=== PATIENT | female | born 1960 | race Two or more races ===

== ENCOUNTER 2020-10-03 15:44 | Outpatient (REF) | payer OTHER, SELFPAY ==
--- NOTE | ~2020-10-03 | US_ITS ---
EXAMINATION: US RETROPERITONEAL COMPLETE (RENAL) CLINICAL INFORMATION: Unspecified abdominal pain. Horseshoe kidney. COMPARISON: Renal ultrasound 11/27/2019. Ultrasound abdomen complete 03/01/2019. TECHNIQUE: Real-time imaging of the kidneys and bladder. FINDINGS: There is a horseshoe kidney. RIGHT MOIETY: 9.2 x 3.8 x 4.0 cm (SAG x AP x TRV). The kidney is normal in size, contour, and echogenicity. Renal cortical thickness is normal. No focal parenchymal lesions or hydronephrosis. A nonobstructing calculus in the mid polar region measures 0.2 cm. LEFT MOIETY: 11.5 x 4.1 x 4.8 cm (SAG x AP x TRV). The kidney is normal in size, contour, and echogenicity. Renal cortical thickness is normal. No calculi or focal parenchymal lesions. There is mild hydronephrosis new from priors. BLADDER: Well distended and normal. Bilateral ureteral jets are demonstrated. Prevoid bladder volume is 250 mL. Postvoid bladder volume is 5 mL. US/US retroperitoneal comp IMPRESSION: 1. Horseshoe kidney. Mild hydronephrosis of the left moiety new from prior studies. 2. Small nonobstructing calculus mid polar region of the right moiety..
== END 2020-10-03 15:45 | disposition home or self-care (01) ==
LOC: HO.US 15:44
PROVIDERS: Visit Provider Physician Assistant
DX: R10.2 Pelvic and perineal pain (principal); N39.0 Urinary tract infection, site not specified
CPT/HCPCS: 76770

== ENCOUNTER 2020-10-15 10:28 | Outpatient (REF) | payer OTHER, SELFPAY ==
--- NOTE | ~2020-10-15 | US_ITS ---
EXAMINATION: US ABDOMEN COMPLETE CLINICAL INFORMATION: Epigastric pain. COMPARISON: Ultrasound kidneys and bladder 10/03/2020. Renal ultrasound 11/27/2019. Abdominal ultrasound February 2019 TECHNIQUE: Real-time imaging of the abdominal viscera. FINDINGS: PANCREAS: Normal. ABDOMINAL AORTA: There is evidence of atherosclerotic disease with vessel wall calcification. The upper abdominal aorta is normal in caliber. The mid and distal abdominal aorta is not well visualized due to bowel gas. INFERIOR VENA CAVA: Visualized portions are normal. LIVER: Normal. The liver is normal in size. The liver contour is normal. Parenchymal echogenicity is normal. No focal hepatic lesion. There is no intrahepatic biliary duct dilatation seen. GALLBLADDER: Normal. The gallbladder is physiologically distended without evidence of stones, sludge, polyps, wall thickening or pericholecystic fluid. COMMON BILE DUCT: Not well visualized. Kidneys: There is a horseshoe kidney. Right renal moiety measures 9 and left renal moiety measures 12 cm in length There is a small echogenic density with twinkle artifact in the lower pole of the right moiety questionable for a stone. There is mild pelvic fullness, left greater than right. No definite hydronephrosis is seen. No renal mass. SPLEEN: Normal. The spleen measures 7.4 cm in maximum dimension. FREE FLUID: None. US/US abdomen complete IMPRESSION: Horseshoe kidney. Question small right renal stone. Limited visualization of the mid and distal abdominal aorta and common bile duct. Otherwise unremarkable exam.
== END 2020-10-15 10:29 | disposition home or self-care (01) ==
LOC: HO.US 10:28
PROVIDERS: Visit Provider Physician Assistant
DX: R10.13 Epigastric pain (principal)
CPT/HCPCS: 76700

== ENCOUNTER → 2020-11-04 11:04 | Outpatient (BNVA) | payer OTHER, SELFPAY | PROVIDERS: PCP Physician Assistant; Visit Provider Urology | DX: N39.0 Urinary tract infection, site not specified (principal) | CPT/HCPCS: 99202 ==

== ENCOUNTER 2023-01-17 15:22 | Outpatient (REF) | payer OTHER, SELFPAY | END 2023-01-17 15:23 | disposition home or self-care (01) | LOC: HO.LAB 15:22 | PROVIDERS: Absent Provider Physician Assistant; PCP Internal Medicine; Visit Provider Internal Medicine | DX: I10 Essential (primary) hypertension (principal) | CPT/HCPCS: 36415; 80053; 80061; 82043; 83880; 84443; 84484; 85027 ==

== ENCOUNTER 2023-01-17 16:09 | Emergency (ER) | payer OTHER, SELFPAY ==
--- NOTE | 2023-01-17 16:11 | ECG_ITS ---
Test Reason : CHEST PAIN
[2023-01-17 16:33] VITALS: BP 167/79; PULSE 94; RESP 18; TEMP 36.8; O2SAT 99; BMI 26.4
--- NOTE | 2023-01-17 16:39 | ED.GENADULT ---
HPI - General Adult General Chief complaint: Chest Pain Stated complaint: chest pain Time Seen by Provider: 01/17/23 21:28 Source: patient Mode of arrival: ambulatory Limitations: no limitations History of Present Illness HPI narrative: Patient 62 years old female with history of fibromyalgia hypertension GERD comes here for 2 weeks of sharp left-sided chest pain going to the left arm increases on palpation and taking deep breath no cough no fever no chills patient said last time patient had pneumonia with similar pain. Related Data Home Medications Medication Instructions Recorded Confirmed diazepam 5 mg tablet 5 mg PO BID PRN 05/12/20 10/13/22 Previous Rx's Medication Instructions Recorded clonidine HCl 0.1 mg tablet 0.1 mg PO Q8H PRN for anxiety #90 07/06/20 tabs estradiol 0.01% (0.1 mg/gram) See Rx Instructions .Route 3XW 30 03/26/21 vaginal cream days #42.5 grams duloxetine 30 mg capsule,delayed 30 mg PO DAILY 30 days #30 caps 08/01/21 release NEBULIZER and all related supplies #1 ea 07/09/22 acetaminophen 325 mg tablet 650 mg PO Q6H PRN pain #30 tabs 09/03/22 (Tylenol) famotidine 20 mg tablet 20 mg PO DAILY 30 days #30 tabs 09/13/22 hydrochlorothiazide 12.5 mg capsule 12.5 mg PO QAM #30 caps 09/13/22 sucralfate 1 gram tablet (Carafate) 1 g PO BID 30 days #60 tabs 09/13/22 albuterol sulfate 2.5 mg/3 mL 2.5 mg (3 mL) inhalation QID PRN 09/25/22 (0.083 %) solution for nebulization for wheezing #300 mL acetaminophen 300 mg-codeine 30 mg 1 tab PO Q8H PRN pain 4 days #12 10/13/22 tablet tabs loratadine 10 mg tablet 10 mg PO DAILY 90 days #90 tabs 10/13/22 amlodipine 10 mg tablet 10 mg PO DAILY #30 tabs 11/16/22 hydroxyzine HCl 25 mg tablet 25 mg PO Q8H PRN for anxiety #90 11/16/22 tabs omeprazole 40 mg capsule,delayed 40 mg PO DAILY #30 caps 11/16/22 release fluticasone propionate 50 1 spray intranasal DAILY #16 mL 11/21/22 mcg/actuation nasal spray,suspension albuterol sulfate 90 mcg/actuation 1 puff inhalation QID #18 ea 12/18/22 aerosol inhaler (Ventolin HFA) trimethoprim 100 mg tablet 100 mg PO DAILY 90 days #90 tabs 12/27/22 gabapentin 600 mg tablet 600 mg PO BID 30 days #60 tabs 01/11/23 ibuprofen 600 mg tablet 600 mg PO Q6H PRN fever or pain 01/17/23 #30 tabs Allergies Allergy/AdvReac Type Severity Reaction Status Date / Time penicillin V Allergy Unknown hives Verified 10/13/22 14:06 Review of Systems Review of Systems: Yes all other systems are reviewed and are negative [facility] Past Medical History Medical History Chest congestion Surgical History History of total abdominal hysterectomy Family History Family History Father No problems noted. Mother No problems noted. Family/Other Diabetes Hypertension Son No problems noted. Social History Social History Housing: Apartment Alcohol intake: never Patient Tobacco Use Status: Current everyday Tobacco user Cigarettes Per Day: 4 Smoked in Last 30 Days: Yes Use of substances other than those prescribed or required for medical reasons: No Advance Directives: No Advance Directives Information Provided: Yes service: No Current occupational status: disabled Cognitive needs: No Hearing needs: No Vision needs: No Physical Exam ED Vital Signs: Vital Signs - 24 hr 01/17/23 16:33 01/17/23 22:08 Temperature 98.3 F 98.1 F Pulse Rate 94 84 Respiratory Rate 18 15 Blood Pressure 167/79 H 158/68 H Pulse Oximetry 99 97 Oxygen Delivery Method Room Air Room Air BMI result Body Mass Index 26.4 Appearance: Alert. Oriented X3. No acute distress. Sleeping without any distress Eyes: PERRLA, No Nystagmus ENT: Pharynx normal. Oral Mucosa moist Neck: Normal inspection. Neck supple. CVS: Normal heart rate and rhythm. Pulses normal. Respiratory: No respiratory distress. Equal air entry bilateral, no wheezing/rales/rhonchi left chest wall tenderness at L 2nd intercostal space Abdomen: Soft and nontender. Bowel sounds are present, no mass palpable, no CVA tenderness Skin: Skin warm and dry. Normal skin color. Normal skin turgor. Extremities: No lower extremity edema. No calf tenderness Neuro: Oriented X 3. No motor deficit. No sensory deficit.No cerebellar signs , cranial nerves II-XII intact Course Course Course Narrative: RmE: 62 yold female presetns to the ED for left sided chest pain radiating to left arm. Patient states no SOB. EkG and labs ordered Medications Administered Discontinued Medications Generic Name Dose Route Start Last Admin Trade Name Freq PRN Reason Stop Dose Admin Ibuprofen 600 mg 01/17/23 22:24 01/17/23 22:45 Ibuprofen 600 Mg Tablet PO 01/17/23 22:25 600 mg ONCE ONE Administration Medical Decision Making Medical Decision Making [facility] Narrative: Patient with costal cartilage and tenderness labs stable chest x-ray negative discharge patient home on ibuprofen Differential Diagnosis Costochondritis/ACS/pneumonia Lab Data [facility] Lab Attestation statement: I reviewed the patient's lab results. Independent Interpretation I performed an independent interpretation of an: EKG Interpretation: Normal sinus rhythm heart rate 80 beats per minute normal intervals normal axis no acute consolidation no acute ischemia Discharge Plan Discharge Clinical Impression: Costalchondritis Patient Disposition: Home, Self-Care Instructions: Costochondritis (ED) Additional Instructions: Ibuprofen for pain Your chest pain is from inflammation of the cartilage Follow-up with PCP Prescriptions: New ibuprofen 600 mg tablet 600 mg PO Q6H PRN (Reason: fever or pain) Qty: 30 0RF No Action clonidine HCl 0.1 mg tablet 0.1 mg PO Q8H PRN (Reason: for anxiety) Qty: 90 3RF estradiol 0.01 % (0.1 mg/gram) cream See Rx Instructions .Route 3XW 30 Days Qty: 42.5 5RF Rx Instructions: pea-sized to urethra 3 times a week; duloxetine 30 mg capsule,delayed release(DR/EC) 30 mg PO DAILY 30 Days Qty: 30 3RF (DME) NEBULIZER and all related supplies See Rx Instructions .Route .MEDSUPPLY Qty: 1 0RF Rx Instructions: As directed acetaminophen [Tylenol] 325 mg tablet 650 mg PO Q6H PRN (Reason: pain) Qty: 30 0RF hydrochlorothiazide 12.5 mg capsule 12.5 mg PO QAM Qty: 30 4RF famotidine 20 mg tablet 20 mg PO DAILY 30 Days Qty: 30 3RF sucralfate [Carafate] 1 gram tablet 1 g PO BID 30 Days Qty: 60 3RF albuterol sulfate 2.5 mg /3 mL (0.083 %) solution for nebulization 2.5 mg inhalation QID PRN (Reason: for wheezing) Qty: 300 0RF omeprazole 40 mg capsule,delayed release(DR/EC) 40 mg PO DAILY Qty: 30 4RF amlodipine 10 mg tablet 10 mg PO DAILY Qty: 30 4RF hydroxyzine HCl 25 mg tablet 25 mg PO Q8H PRN (Reason: for anxiety) Qty: 90 1RF fluticasone propionate 50 mcg/actuation spray,suspension 1 spray intranasal DAILY Qty: 16 1RF albuterol sulfate [Ventolin HFA] 90 mcg/actuation HFA aerosol inhaler 1 puff inhalation QID Qty: 18 3RF trimethoprim 100 mg tablet 100 mg PO DAILY 90 Days Qty: 90 1RF gabapentin 600 mg tablet 600 mg PO BID 30 Days Qty: 60 5RF diazepam 5 mg tablet 5 mg PO BID PRN loratadine 10 mg tablet 10 mg PO DAILY 90 Days Qty: 90 1RF acetaminophen-codeine 300-30 mg tablet 1 tab PO Q8H PRN (Reason: pain) 4 Days Qty: 12 0RF Discharge Date/Time: 01/17/23 23:07
[2023-01-17 22:00] VITALS: PULSE 88
[2023-01-17 22:08] VITALS: BP 158/68; PULSE 84; RESP 15; TEMP 36.7; O2SAT 97
--- NOTE | 2023-01-17 23:10 | PC.NURSE ---
continuous athletic monitor placed
--- NOTE | 2023-01-17 23:23 | PC.NURSE ---
Discharge instructions given and explained to pt No apparent distress No respiratory distress Able to speak in full sentences Ambulates safely/independently All of pt's questions answered AOx4
== END 2023-01-17 23:07 | disposition home or self-care (01) ==
PROVIDERS: Emergency Provider Internal Medicine; PCP Physician Assistant
DX: M94.0 Chondrocostal junction syndrome [Tietze] (principal); I10 Essential (primary) hypertension; Z79.899 Other long term (current) drug therapy
CPT/HCPCS: 71045; 93005; 99283; 99285

== ENCOUNTER → 2024-01-04 12:57 | Outpatient (REF) | payer OTHER, SELFPAY ==
--- NOTE | 2024-01-04 13:01 | ECG_ITS ---
Test Reason : CP Blood Pressure : / mmHG Vent. Rate : 094 BPM Atrial Rate : 094 BPM P-R Int : 212 ms QRS Dur : 070 ms QT Int : 370 ms P-R-T Axes : 078 009 065 degrees QTc Int : 462 ms Sinus rhythm with 1st degree A-V block Otherwise normal ECG When compared with ECG of 17-JAN-2023 16:19, No significant change was found Referred By: Nhan Golden Electronically Signed By:Demario Santos
== END ==
LOC: HO.CARD 12:57
PROVIDERS: PCP Physician Assistant; Visit Provider Physician Assistant
DX: R07.9 Chest pain, unspecified (principal)
CPT/HCPCS: 93005

== ENCOUNTER → 2024-01-04 13:01 | Outpatient (BNV) | payer OTHER, SELFPAY | PROVIDERS: PCP Physician Assistant; Visit Provider Internal Medicine Cardiovascular Disease | DX: R07.9 Chest pain, unspecified (principal) | CPT/HCPCS: 93010 ==

== ENCOUNTER 2024-02-15 08:20 | Outpatient (AMB) | payer OTHER, SELFPAY ==
--- NOTE | 2024-02-15 08:54 | A.OFFPC_ITS ---
Vital Signs 02/15/24 08:56 Height 5 ft 1 in Weight 108 lb BMI 20.4 BP 132/60 Blood Pressure Location Lt brachial Position Sitting Pulse 78 Pulse Source Pulse Oximeter Pulse Oximetry (%) 99 Oxygen Delivery Method Room Air Intake Visit Reasons: discuss getting a wheelchair Intake Note: Patient is here to follow up on discuss of getting wheelchair/scooter due to difficulty walk and Polyarthralgia. [employer] Sales Required: No Shampoo Assistant: Present Accompanied by: SHELL WORKER Allergies penicillin V Allergy (Unknown, Verified 02/15/24 09:11) hives Medication List - Last Reconciled 02/15/24 by Nhan Golden PA-C acetaminophen (Tylenol) 650 mg (2 x 325 mg) PO Q6H PRN acetaminophen-codeine 300-30 mg 1 tab PO Q8H PRN 4 days albuterol sulfate 90 mcg/actuation (Ventolin HFA) 1 puff inhalation QID albuterol sulfate 2.5 mg (3 mL) inhalation QID PRN amlodipine 10 mg PO DAILY 90 days clonidine HCl 0.1 mg PO Q8H PRN duloxetine 30 mg PO DAILY 30 days estradiol 0.01%(0.1mg/gram) pea-sized to urethra 3 times a week; 30 days famotidine 20 mg PO DAILY 30 days ferrous sulfate 325 mg PO DAILY 90 days fluticasone propionate 50 mcg/actuation 1 spray intranasal DAILY gabapentin 600 mg PO BID 30 days hydrochlorothiazide 12.5 mg PO QAM hydroxyzine HCl 25 mg PO Q8H PRN ibuprofen 600 mg PO Q6H PRN loratadine 10 mg PO DAILY 90 days [NEBULIZER and all related supplies As directed] omeprazole 40 mg PO DAILY sucralfate (Carafate) 1 g PO BID 30 days trimethoprim 100 mg PO DAILY 90 days Tobacco use date assessed: 02/15/24 Dental Screening Dental Screen Date: 02/15/24 Did you have a dental visit in the last 12 months?: No Did you have a dental problem in the last 6 months where you did not have access to dental care?: No Was dental information given to patient?: Patient has dentist HPI discuss getting a wheelchair HPI Details Patient is a 64-year-old female being here today for a follow-up visit. Has not been seen in quite some time here at the primary care office. .? Patient has a past medical history significant for fibromyalgia, chronic UTIs, multiple personalities, major depressive disorder, hypertension. Concerns--> Has lost a significant amount of weight since last visit. Now at 108lbs from 135Lbs. She does report changes in her diet reports she has been falling lately, and is requesting script for a walker and a wheelchair. She would like to get a electric scooter though no she needs to be evaluated [facility] physical therapy She does report she is not able to afford her electricity bill though still needs her electric nebulizer and needs medical necessity letter to her electrical department to keep her power on. CHRONIC MEDICAL CONDITIONS--> Major depressive disorder/multiple personalities:? Patient was followed by psychiatrist whom prescribes? her mental health medications.? Unfortunately lost her follow-up with her psychiatrist and would like to be re-established with a mental health therapist and a new psychiatrist. Will be getting set up with senior services in [facility] on a daily basis with multiple personalities. She continues to have personal issues at home. .. Asthma: She reports her asthma has been fairly well controlled though has been having some shortness of breath and cough as of late. Physical exam does note some wheeze today in office. Unfortunately continues to smoke a few cigarettes per day and does understand she needs to quit. She does report having some sharp chest pains at times and is willing to get a chest x-ray. .. Hypertension:? Patient reports when she takes her blood pressure at home she gets normal readings 120s to 130 systolic.? She continues on amlodipine 10 mg and hydrochlorothiazide 12.5.? Denies any chest discomfort, headaches, shortness of breath on exertion. ?.. ?.. ?Fibromyalgia: Patient reports her pain is worsening with? cold and moist weather, does get good relief with Tylenol No. 3. She reports the pain in her legs has been getting worse particular in her knees and ankles. She relates this to her fibromyalgia which has caused her not to be able to ambulate well often needing assistance with walking long distances. --> I agree she would benefit from a Rol lator walker in a transport wheelchair in order to get to appointments and get her blood work done and enjoy her life [facility] Medical History (Updated 07/31/24 @ 15:30 by Nhan Golden PA-C) Foot callus Polyarthralgia Pain of left heel Chest congestion Surgical History History of foot surgery History of total abdominal hysterectomy Family History Father No problems noted. Mother No problems noted. Family/Other Diabetes Hypertension Son No problems noted. Social History Housing: Apartment Alcohol intake: never Patient Tobacco Use Status: Current everyday Tobacco user Tobacco use type: Cigarette Cigarettes Per Day: 4 e-Cigarette/Vaping Use: Never Used Second Hand Smoke Exposure: Yes service: No Current occupational status: disabled Cognitive needs: Yes (Cane) Hearing needs: Yes (hearing) Vision needs: Yes (Glasses) Questionnaire PHQ-9 Over the last 2 weeks, how often have you been bothered by any of the following problems? 1. Little interest or pleasure in doing things: more than half the days 2. Feeling down, depressed, or hopeless: nearly every day 3. Trouble falling or staying asleep, or sleeping too much: several days 4. Feeling tired or having little energy: more than half the days 5. Poor appetite or overeating: more than half the days 6. Feeling bad about yourself - or that you are a failure or have let yourself or your family down: nearly every day 7. Trouble concentrating on things, such as reading the newspaper or watching television: several days 8. Moving or speaking so slowly that other people could have noticed. Or the opposite - being so fidgety or restless that you have been moving around a lot more than usual: not at all 9. Thoughts that you would be better off or of hurting yourself in some way: not at all Total score: 14 Depression Screening Interpretation: Positive Depression Screening Follow-up: Existing condition and In treatment Depression Screening Done: Yes 88594 - PHQ-9 Billing: Yes Source: Developed by Drs. Carlos Paris, Kelly Steele, Jerry Edward and colleagues, with an educational danitza from [employer]. Thrive Questionnaire Date Thrive assessed: 02/15/24 I am a: Patient What is your living situation today?: I have a steady place to live Within the past 12 months, did the food you bought not last and you didn't have the money to get more?: Never true Within the past 12 months, did you worry whether your food would run out before you got money to buy more?: Never true Do you have trouble paying for medicines?: No Do you have trouble getting transportation to medical appointments?: No Do you have trouble paying your heating and electricity bill?: No Do you have trouble taking care of your child, family member or friend?: No Do you have trouble with day-to-day activities such as bathing, preparing meals, shopping, managing finances, etc.?: No Are you currently unemployed and looking for a job?: No Are you interested in more education?: No Currently or been in a relationship where the following occur: No concerns reported THRIVE Score: 0 AUDIT C Alcohol Use Questionnaire (AUDIT-C) 1. How often do you have a drink containing alcohol?: Never Total Score: 0 MARU-7 AMB Questionnaire MARU-7 Date MARU - 7 assessed: 02/15/24 Feeling nervous, anxious, or on edge: 3 = Nearly every day Not being able to stop or control worryin = Nearly every day Worrying too much about different things: 3 = Nearly every day Trouble relaxin = More than half the days Being so restless that it is hard to sit still: 0 = Not at all Becoming easily annoyed or irritable: 2 = More than half the days Feeling afraid as if something awful might happen: 3 = Nearly every day Total MARU-7 score (0-4 normal; 5-9 mild; 10-14 moderate; 15-21 severe): 16 Source: Developed by Drs. Carlos Paris, Kelly Steele, Jerry Edward and colleagues, with an educational danitza from [employer]. MARU-7 Assessment Billing MARU-7 Assessment Tool: MARU-7 Assessment 53168 Physical exam (Primary Care) Vital Signs: Last Vital Signs Pulse 78 02/15/24 08:56 BP 132/60 02/15/24 08:56 Pulse Ox 99 02/15/24 08:56 Oxygen Delivery Method Room Air 02/15/24 08:56 BMI result Body Mass Index 20.4 Tobacco/Smoking Status: Tobacco use Status Tobacco use date assessed 02/15/24 02/15/24 09:03 Patient Tobacco Use Status Current everyday Tobacco 02/15/24 09:03 Tobacco use type Cigarette 02/15/24 09:05 e-Cigarette/Vaping Use Never Used 02/15/24 09:03 PHQ-9: PHQ-9 Score PHQ-9: Total score 14 02/15/24 13:57 Depression Screening Interpretation: Positive Depression Screening Follow-up: Existing condition and In treatment Thrive Assessment: Date of Thrive Assessment Date Thrive assessed 02/15/24 02/15/24 09:03 Currently or been in a relationship where the following occur: No concerns reported Assessment and Plan Assessment & Plan (1) HTN (hypertension): Code(s): I10 - Essential (primary) hypertension Qualifiers: Hypertension type: essential hypertension Qualified Code(s): I10 - Essential (primary) hypertension Plan: Patient reports blood pressure has been stable on current dose of amlodipine. Denies any chest discomfort, headaches or dizziness. Goal blood pressure be below 140/90 (2) Borderline high cholesterol: Code(s): E78.9 - Disorder of lipoprotein metabolism, unspecified Plan: Most recent lipid panel showing borderline high cholesterol. Will continue to follow flu diet restrictions. Will follow her lipid panel closely with goal LDL to be below 130 (3) Asthma: Code(s): J45.909 - Unspecified asthma, uncomplicated Qualifiers: Asthma complication type: uncomplicated Asthma persistence: intermittent Asthma severity: mild Qualified Code(s): J45.20 - Mild intermittent asthma, uncomplicated Plan: Unfortunately continues to smoke. Does have an albuterol inhaler and nebulizer available to her. She does report some chest tightness at times and is willing to get a chest x-ray. Again advised to quit smoking (4) MDD (major depressive disorder), recurrent episode, moderate: Code(s): F33.1 - Major depressive disorder, recurrent, moderate Plan: Patient does suffer from multiple mental health conditions including depression and anxiety. PHQ-9 score positive for moderate depression which has been existing condition for her. She has lost her follow-up with her mental health providers and would like to reestablish with a mental health therapist and a psychiatrist to manage her mental health medications. (5) Fibromyalgia: Code(s): M79.7 - Fibromyalgia Plan: She continues to have intermittent pain flares all over her body. Does report recently falling a few times at her [facility] apartment. She does use Tylenol with codeine on a p.r.n. basis for pain. She continues with duloxetine 30 mg We did discuss the habit-forming nature of this medication and patient promises to only use for pain scales of 8-10 and for her regular chronic pain to continue Tylenol 650. (6) Anemia: Code(s): D64.9 - Anemia, unspecified Qualifiers: Anemia type: iron deficiency Iron deficiency anemia type: other iron deficiency Qualified Code(s): D50.8 - Other iron deficiency anemias Plan: Has had history of anemia. Has noticed significant weight loss since last office visit . Will recheck iron studies. (7) Tobacco dependence: Code(s): F17.200 - Nicotine dependence, unspecified, uncomplicated Plan: Patient does understand she needs to quit smoking though at this time is not willing to try nicotine replacement. (8) Breast cancer screening: Code(s): Z12.39 - Encounter for other screening for malignant neoplasm of breast Qualifiers: Breast cancer screening modality: mammogram Qualified Code(s): Z12.31 - Encounter for screening mammogram for malignant neoplasm of breast Plan: Willing to do mammogram (9) Colon cancer screening: Code(s): Z12.11 - Encounter for screening for malignant neoplasm of colon Plan: She is willing to do colonoscopy (10) Leg weakness, bilateral: Code(s): R29.898 - Other symptoms and signs involving the musculoskeletal system Plan: As above, likely related to her fibromyalgia and an element of osteoarthritis. Likely benefit from Rollator walker in a transfer wheelchair to help her with her mobility. (11) Balance disorder: Code(s): R26.89 - Other abnormalities of gait and mobility Plan: Will likely benefit from Rollator walker and a transfer wheelchair to reduce falls (12) Constipation: Code(s): K59.00 - Constipation, unspecified Qualifiers: Constipation type: slow transit constipation Qualified Code(s): K59.01 - Slow transit constipation Plan: She does report having pretty significant constipation that she relates also to causing her recurrent UTIs. She has tried [id number]-[id number] stool softeners and laxatives though have not been helpful. (13) Recurrent UTI (urinary tract infection): Code(s): N39.0 - Urinary tract infection, site not specified Plan: Has followed up with Urology in started on daily use of trimethoprim which has been helpful reducing UTI recurrences. She reports her recurrent UTI has are related to her constipation. 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 She is currently on waiting list to establish care with another mental health therapist and a psychiatrist. Orders: Orders Microalbumin, Random (w Creat) Today I10 - Essential (primary) hypertension [facility]. Panel Fast Today I10 - Essential (primary) hypertension Lipid Panel Today E78.9 - Disorder of lipoprotein metabolism, unspecified Vitamin B12 and Folate Today D50.8 - Other iron deficiency anemias, E53.8 - Deficiency of other specified B group vitamins XR chest 2V Today J45.20 - Mild intermittent asthma, uncomplicated Complete Blood Count no Diff Today K21.9 - Gastro-esophageal reflux disease without esophagitis IRON PROFILE Today D50.8 - Other iron deficiency anemias, D50.9 - Iron deficiency anemia, unspecified PT Evaluation and Treatment Today R29.898 - Other symptoms and signs involving the musculoskeletal system MM screening mammo BI Today Z12.31 - Encounter for screening mammogram for malignant neoplasm of breast Referrals Gastroenterology Referral Z12.11 - Encounter for screening for malignant neoplasm of colon Thoracic/General Surgery Referral F17.200 - Nicotine dependence, unspecified, uncomplicated Medications: New chair, wheel (Wheel chair) As directed 1 ea 0RF R26.89 - Other abnormalities of gait and mobility, R29.898 - Other symptoms and signs involving the musculoskeletal system walker (Ultra-Light Rollator misc) As directed 1 ea 0RF M54.50 - Low back pain, unspecified, M79.7 - Fibromyalgia, R26.89 - Other abnormalities of gait and mobility, R29.898 - Other symptoms and signs involving the musculoskeletal system Refilled sucralfate (Carafate) 1 g PO BID 60 tabs 3RF 30 days K21.9 - Gastro-esophageal reflux disease without esophagitis loratadine 10 mg PO DAILY 90 tabs 1RF 90 days J30.1 - Allergic rhinitis due to pollen ibuprofen 600 mg PO Q6H PRN 30 tabs 0RF fever or pain hydroxyzine HCl 25 mg PO Q8H PRN 90 tabs 3RF for anxiety 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 gabapentin 600 mg PO BID 60 tabs 5RF 30 days M79.7 - Fibromyalgia duloxetine 30 mg PO DAILY 30 caps 3RF 30 days M79.7 - Fibromyalgia acetaminophen (Tylenol) 650 mg (2 x 325 mg) PO Q6H PRN 30 tabs 0RF pain M54.50 - Low back pain, unspecified, M54.6 - Pain in thoracic spine fluticasone propionate 50 mcg/actuation 1 spray intranasal DAILY 16 mL 1RF J30.9 - Allergic rhinitis, unspecified albuterol sulfate 90 mcg/actuation (Ventolin HFA) 1 puff inhalation QID 1 ea 3RF J45.909 - Unspecified asthma, uncomplicated albuterol sulfate 2.5 mg (3 mL) inhalation QID PRN 300 mL 1RF for wheezing J44.9 - Chronic obstructive pulmonary disease, unspecified trimethoprim 100 mg PO DAILY 90 tabs 1RF 90 days N39.0 - Urinary tract infection, site not specified, R33.9 - Retention of urine, unspecified omeprazole 40 mg PO DAILY 90 caps 1RF K21.9 - Gastro-esophageal reflux disease without esophagitis hydrochlorothiazide 12.5 mg PO QAM 30 caps 4RF I10 - Essential (primary) hypertension ferrous sulfate 325 mg PO DAILY 90 tabs 1RF 90 days D50.9 - Iron deficiency anemia, unspecified famotidine 20 mg PO DAILY 30 tabs 3RF 30 days K21.9 - Gastro-esophageal reflux disease without esophagitis clonidine HCl 0.1 mg PO Q8H PRN 90 tabs 3RF for anxiety I10 - Essential (primary) hypertension amlodipine 10 mg PO DAILY 90 tabs 1RF 90 days I10 - Essential (primary) hypertension acetaminophen-codeine 300-30 mg 1 tab PO Q8H PRN 12 tabs 0RF pain 4 days M79.7 - Fibromyalgia Patient Instructions: Goal: Blood pressure to be below 140/90 Barriers: Adherence to physical activity and healthy eating habits, her chronic pain secondary to fibromyalgia Coding Level of Care Code Est Pt Level 4 (02461) Diagnoses Essential hypertension I10 Hypertension type: essential hypertension Borderline high cholesterol E78.9 Mild intermittent asthma without complication J45.20 Asthma complication type: uncomplicated Asthma persistence: intermittent Asthma severity: mild MDD (major depressive disorder), recurrent episode, moderate F33.1 Fibromyalgia M79.7 Other iron deficiency anemia D50.8 Anemia type: iron deficiency Iron deficiency anemia type: other iron deficiency Tobacco dependence F17.200 Encounter for screening mammogram for malignant neoplasm of breast Z12.31 Breast cancer screening modality: mammogram Colon cancer screening Z12.11 Leg weakness, bilateral R29.898 Balance disorder R26.89 Slow transit constipation K59.01 Constipation type: slow transit constipation Recurrent UTI (urinary tract infection) N39.0 Multiple personalities F44.81 Additional Codes MARU-7 Assessment Billing - MARU-7 Assessment Tool: MARU-7 Assessment [id number] ([id number])
[2024-02-15 08:56] VITALS: BP 132/60; PULSE 78; O2SAT 99; BMI 20.4
== END 2024-02-15 09:41 | disposition home or self-care (01) ==
PROVIDERS: PCP Physician Assistant; Visit Provider Physician Assistant
DX: I10 Essential (primary) hypertension (principal); E78.9 Disorder of lipoprotein metabolism, unspecified; J45.20 Mild intermittent asthma, uncomplicated; F33.1 Major depressive disorder, recurrent, moderate; M79.7 Fibromyalgia; D50.8 Other iron deficiency anemias; F17.200 Nicotine dependence, unspecified, uncomplicated; R29.898 Other symptoms and signs involving the musculoskeletal system; R26.89 Other abnormalities of gait and mobility; K59.01 Slow transit constipation; N39.0 Urinary tract infection, site not specified
CPT/HCPCS: 99214

== ENCOUNTER 2025-03-25 10:49 | Outpatient (AMB) | payer OTHER, SELFPAY ==
--- NOTE | 2025-03-25 10:55 | A.OFFPC_ITS ---
Vital Signs 03/25/25 10:58 Height 5 ft 1 in Weight 134 lb BMI 25.3 BP 120/60 Blood Pressure Location Lt brachial Position Sitting Pulse 88 Pulse Source Pulse Oximeter Temp 97.5 F Temp Source Temporal Artery Scan Pulse Oximetry (%) 96 Oxygen Delivery Method Room Air Intake Visit Reasons: follow up Intake Note: Patient is here to follow up on HTN, GERD, Chronic pain. Injection Molding Process Technician Required: No Diamond Cleaner: Not Required per policy Accompanied by: Self / Same As Patient Allergies penicillin V Allergy (Unknown, Verified 03/25/25 11:23) hives Medication List - Last Reconciled 03/25/25 by Nhan Golden PA-C acetaminophen (Tylenol) 650 mg (2 x 325 mg) PO Q6H PRN acetaminophen-codeine 300-30 mg 1 tab PO Q8H PRN 4 days albuterol sulfate 2.5 mg (3 mL) inhalation QID PRN albuterol sulfate 90 mcg/actuation (Ventolin HFA) 1 puff inhalation QID 30 days amlodipine 10 mg PO DAILY 90 days chair, wheel (Wheel chair) As directed duloxetine 30 mg PO DAILY 30 days estradiol 0.01%(0.1mg/gram) pea-sized to urethra 3 times a week; 30 days famotidine 20 mg PO DAILY 90 days ferrous sulfate 325 mg PO DAILY 90 days fluticasone propionate 50 mcg/actuation 1 spray intranasal DAILY gabapentin 600 mg PO BID 30 days hydrochlorothiazide 12.5 mg PO QAM hydroxyzine HCl 25 mg PO Q8H PRN ibuprofen 600 mg PO Q6H PRN loratadine 10 mg PO DAILY 90 days [NEBULIZER and all related supplies As directed] omeprazole 40 mg PO DAILY sucralfate (Carafate) 1 g PO BID 30 days trimethoprim 100 mg PO DAILY 90 days walker (Ultra-Light Rollator misc) As directed Tobacco use date assessed: 03/25/25 Fall risk assessment: No Falls in past year Last assessed Fall Risk: 03/25/25 Dental Screening Dental Screen Date: 03/25/25 Did you have a dental visit in the last 12 months?: No Did you have a dental problem in the last 6 months where you did not have access to dental care?: No Was dental information given to patient?: Patient has dentist HPI follow up HPI Details Patient is a 65-year-old female being here today for a follow-up visit. Has not been seen in quite some time here at the primary care office. .? Patient has a past medical history significant for fibromyalgia, chronic UTIs, multiple personalities, major depressive disorder, hypertension. Concerns--> Medical necessity for electricity-- > She does report she is not able to afford her electricity bill though still needs her electric nebulizer and needs medical necessity letter to her electrical department to keep her power on. CHRONIC MEDICAL CONDITIONS--> Major depressive disorder/multiple personalities:? Patient was followed by psychiatrist whom prescribes? her mental health medications.? Unfortunately lost her follow-up with her psychiatrist and would like to be re-established with a mental health therapist and a new psychiatrist. Will be getting set up with senior services in [facility] [employer] on a daily basis with multiple personalities. She continues to have personal issues at home. .. Asthma: She reports her asthma has been fairly well controlled though has been having some shortness of breath and cough as of late. Physical exam does note some wheeze today in office. Unfortunately continues to smoke a few cigarettes per day and does understand she needs to quit. She does report having some sharp chest pains at times and is willing to get a chest x-ray. .. Hypertension:? Patient reports when she takes her blood pressure at home she gets normal readings 120s to 130 systolic.? She continues on amlodipine 10 mg and hydrochlorothiazide 12.5.? Denies any chest discomfort, headaches, shortness of breath on exertion. ?.. ?.. ?Fibromyalgia: Patient reports her pain is worsening with? cold and moist weather, does get good relief with Tylenol No. 3. She reports the pain in her legs has been getting worse particular in her knees and ankles. She relates this to her fibromyalgia which has caused her not to be able to ambulate well often needing assistance with walking long distances. --> I agree she would benefit from a an electric scooter to help her with her activities of daily living and being able to be more mobile. She reports trying a Rollator though did not work for her due to continued pain. Advised that she needs evaluation from [facility] physical therapy re-evaluation for electric scooter [facility], [facility] Medical History HTN (hypertension) GERD (gastroesophageal reflux disease) Nicotine dependence, cigarettes, uncomplicated Foot callus Polyarthralgia Pain of left heel Surgical History History of foot surgery History of total abdominal hysterectomy Family History Father No problems noted. Mother No problems noted. Family/Other Diabetes Hypertension Son No problems noted. Social History Housing: Apartment Alcohol intake: never Patient Tobacco Use Status: Current everyday Tobacco user Tobacco use type: Cigarette Cigarette Packs Per Day: 0.5 Cigarettes Per Day: 5 e-Cigarette/Vaping Use: Currently Using Second Hand Smoke Exposure: Yes service: No Current occupational status: disabled Cognitive needs: Yes (Cane) Hearing needs: Yes (hearing) Vision needs: Yes (Glasses) Questionnaire PHQ-9 Over the last 2 weeks, how often have you been bothered by any of the following problems? 1. Little interest or pleasure in doing things: not at all 2. Feeling down, depressed, or hopeless: several days 3. Trouble falling or staying asleep, or sleeping too much: nearly every day 4. Feeling tired or having little energy: more than half the days 5. Poor appetite or overeating: nearly every day 6. Feeling bad about yourself - or that you are a failure or have let yourself or your family down: not at all 7. Trouble concentrating on things, such as reading the newspaper or watching television: more than half the days 8. Moving or speaking so slowly that other people could have noticed. Or the opposite - being so fidgety or restless that you have been moving around a lot more than usual: more than half the days 9. Thoughts that you would be better off or of hurting yourself in some way: not at all Total score: 13 Depression Screening Interpretation: Positive Depression Screening Follow-up: Existing condition and In treatment Depression Screening Done: Yes 45844 - PHQ-9 Billing: Yes Source: Developed by Drs. Carlos Paris, Kelly B.WJerry Nguyen and colleagues, with an educational danitza from [employer]. Thrive Questionnaire Date Thrive assessed: 03/25/25 I am a: Patient What is your living situation today?: I have a steady place to live Within the past 12 months, did the food you bought not last and you didn't have the money to get more?: Never true Within the past 12 months, did you worry whether your food would run out before you got money to buy more?: Never true Do you have trouble paying for medicines?: No Do you have trouble getting transportation to medical appointments?: No Do you have trouble paying your heating and electricity bill?: No Do you have trouble taking care of your child, family member or friend?: No Do you have trouble with day-to-day activities such as bathing, preparing meals, shopping, managing finances, etc.?: No Are you currently unemployed and looking for a job?: No Are you interested in more education?: No Please select the resources that you would like help with: None Currently or been in a relationship where the following occur: No concerns reported THRIVE Score: 0 AUDIT C Alcohol Use Questionnaire (AUDIT-C) 1. How often do you have a drink containing alcohol?: Never Total Score: 0 MARU-7 AMB Questionnaire MARU-7 Date MARU - 7 assessed: 03/25/25 Feeling nervous, anxious, or on edge: 3 = Nearly every day Not being able to stop or control worryin = Not at all Worrying too much about different things: 0 = Not at all Trouble relaxin = More than half the days Being so restless that it is hard to sit still: 3 = Nearly every day Becoming easily annoyed or irritable: 1 = Several days Feeling afraid as if something awful might happen: 0 = Not at all Total MARU-7 score (0-4 normal; 5-9 mild; 10-14 moderate; 15-21 severe): 9 Source: Developed by Drs. Carlos Paris, Jerry Tobin and colleagues, with an educational danitza from [employer]. MARU-7 Assessment Billing MARU-7 Assessment Tool: MARU-7 Assessment 73094 Review of Systems Const Denies headache(s) Eyes Denies loss of vision ENT Denies vertigo, Denies dizziness, Denies headache(s) and Denies sore throat Card Denies chest pain, Denies leg edema and Denies lightheadedness Resp Denies cough, Denies hemoptysis and Denies wheezing GI Denies abdominal pain, Denies melena, Denies constipation, Denies diarrhea and Denies vomiting Denies urinary frequency, Denies dysuria and Denies urinary urgency Musc Denies arthralgias, Denies joint swelling, Denies numbness and Denies tingling Neuro Denies Abnormal speech present, Denies behavioral changes, Denies vertigo, Denies dizziness, Denies headache(s), Denies loss of vision, Denies memory loss, Denies numbness and Denies tingling Psych Denies anxiety, Denies behavioral changes, Denies depression, Denies memory loss and Denies panic attacks Leonardo/Lymph Denies easy bleeding and Denies easy bruising Aller/Immun Denies wheezing Physical exam (Primary Care) Vital Signs: Last Vital Signs Temp 97.5 F 03/25/25 10:58 Pulse 88 03/25/25 10:58 BP 120/60 03/25/25 10:58 Pulse Ox 96 03/25/25 10:58 Oxygen Delivery Method Room Air 03/25/25 10:58 BMI result Body Mass Index 25.3 Tobacco/Smoking Status: Tobacco use Status Tobacco use date assessed 03/25/25 03/25/25 11:10 Patient Tobacco Use Status Current everyday Tobacco 03/25/25 11:10 Tobacco use type Cigarette 03/25/25 11:10 e-Cigarette/Vaping Use Currently Using 03/25/25 11:10 PHQ-9: PHQ-9 Score PHQ-9: Total score 13 03/25/25 11:12 Depression Screening Interpretation: Positive Depression Screening Follow-up: Existing condition and In treatment Thrive Assessment: Date of Thrive Assessment Date Thrive assessed 03/25/25 03/25/25 11:10 Currently or been in a relationship where the following occur: No concerns rep orted Const General: healthy appearing, no acute distress, alert and awake Nutritional Appearance: well nourished Orientation/consciousness: oriented to person, oriented to place and oriented to time HENMT Ears: TM's normal bilaterally General nose exam: Normal nasal mucous membranes and turbinates present Eyes Conjunctivae: conjunctivae normal Sclerae: sclerae normal Pupils: Equal, round and reactive pupils present Neck Neck: Yes no lymphadenopathy and Yes no JVD Thyroid: Thyroid normal Carotids: no bruits Resp Effort & Inspection: normal respiratory effort and not tachypneic Auscultation: no crackles, no rales, no rhonchi and no wheezes Cardio Rate: regular rate Rhythm: regular rhythm Heart sounds: no murmurs and normal S1 and S2 GI Palpation (GI): Soft to palpation, nontender, no hepatomegaly and no spl enomegaly Auscultation: normal bowel sounds Skin General skin exam: no rashes or lesions noted and dry skin Neuro General: oriented to person, oriented to place and oriented to time Cranial nerves: Yes Equal, round and reactive pupils present Speech: No Abnormal speech present Gait exam (Neuro): Normal gait present Motor exam (neuro): no tremor noted Extrem Right upper extremity: full ROM Left upper extremity: full ROM Right lower extremity: full ROM; no edema Left lower extremity: full ROM; no edema Psych Mental Status: mental status grossly normal Speech and movement: Normal speech and movement present Affect: normal affect Attitude: cooperative Thought process: Normal thought process present Coding Level of Care Code Est Pt Level 4 (35322) Diagnoses Essential hypertension I10 Hypertension type: essential hypertension Multiple personalities F44.81 Fibromyalgia M79.7 Chest pain at rest R07.9 MDD (major depressive disorder), recurrent episode, moderate F33.1 Additional Codes PHQ-9 - 36868 - PHQ-9 Billing: Yes ([id number]) MARU-7 Assessment Billing - MARU-7 Assessment Tool: MARU-7 Assessment 39100 ([id number]) Assessment & Plan Assessment & Plan (1) HTN (hypertension): Code(s): I10 - Essential (primary) hypertension Category: Medical Qualifiers: Hypertension type: essential hypertension Qualified Code(s): I10 - Essential (primary) hypertension Plan: pateint will cont current htn meds. 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 She does use Tylenol No. 3 on as needed basis for pain scales of 9-10. Otherwise uses duloxetine and Tylenol regularly (4) Chest pain at rest: Code(s): R07.9 - Chest pain, unspecified Category: Medical Plan: Patient reports chest pain at rest for quite some time now though reports being more frequent. An EKG and chest X-ray have been ordered to evaluate the cause of chest pain and rule out cardiac or pulmonary issues. (5) MDD (major depressive disorder), recurrent episode, moderate: Code(s): F33.1 - Major depressive disorder, recurrent, moderate Category: Medical Plan: Patient's PHQ-9 score positive for depression which has been existing condition for her. She has lost follow up with her psychiatry and is interested in reestablishing care with a mental health therapist and eventually a psychiatrist. Orders: Orders Microalbumin, Random (w Creat) Today I10 - Essential (primary) hypertension Complete Blood Count no Diff Today I10 - Essential (primary) hypertension Comprehensive [place]. Panel Fast Today I10 - Essential (primary) hypertension Lipid Panel Today E78.9 - Disorder of lipoprotein metabolism, unspecified ECG 12 lead EKG Today R07.9 - Chest pain, unspecified XR chest 2V Today R07.9 - Chest pain, unspecified Referrals Counseling Referral F33.1 - Major depressive disorder, recurrent, moderate Medications: New budesonide-formoterol 80-4.5 mcg/actuation (Symbicort) 1 inh inhalation BID 10.2 grams 3RF 30 days J45.20 - Mild intermittent asthma, uncomplicated Changed From duloxetine 30 mg PO DAILY 30 days 30 caps 3RF M79.7 - Fibromyalgia To duloxetine 30 mg PO DAILY 90 caps 1RF 90 days M79.7 - Fibromyalgia From gabapentin 600 mg PO BID 30 days 60 tabs 2RF M79.7 - Fibromyalgia To gabapentin 600 mg PO BID 180 tabs 1RF 90 days M79.7 - Fibromyalgia Refilled albuterol sulfate 2.5 mg (3 mL) inhalation QID PRN 300 mL 1RF for wheezing J44.9 - Chronic obstructive pulmonary disease, unspecified ferrous sulfate 325 mg PO DAILY 90 tabs 1RF 90 days D50.9 - Iron deficiency anemia, unspecified hydroxyzine HCl 25 mg PO Q8H PRN 90 tabs 3RF for anxiety 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
[2025-03-25 10:58] VITALS: BP 120/60; PULSE 88; TEMP 36.4; O2SAT 96; BMI 25.3
--- OUTSIDE RECORDS SUMMARY | 2025-03-25 13:10 | XMS_ITS | Clinical Summary ---
Author Organization [facility] Address [address] [place] [address] Care Team Providers Care Probate Judge Name Role Phone Unavailable Primary Care Provider Unavailabl e Social History Tobacco Use Types Packs/Day Years Used Date Smoking Tobacco: Never Assessed Comments Unknown Sex and Gender Information Value Date Recorded Sex Assigned at Not on file Legal Sex Female 4:08 AM EST Gender Identity Not on file Sexual Orientation Not on file Plan of Treatment Health Maintenance Due Date Last Done Comments Breast Cancer Screening 1960 DTaP,Tdap,and Td Vaccines (1 - Tdap) 02/08/1980 Cervical Cancer Screening: P ap Smear 1982 Pneumococcal Vaccine: 50+ Ye ars (1 of 1 - PCV) 2011 Zoster Vaccines (1 of 2) 2011 Depression Screening 07/18/2024 COVID-19 Vaccine (1 - 2023-2 5 season) 2025 Influenza Vaccine (#1) 2025 RSV Immunization Adult Patie nts (1 - 1-dose 75+ series) 02/08/2036 HIB Vaccines Aged Out No longer eligi ble based on patient's age to complete this topic HPV Vaccines Aged Out No longer eligi ble based on patient's age to complete this topic Hepatitis A Vaccines Aged Out No long er eligible based on patient's age to complete this topic Hepatitis B Vaccines Aged Out No long er eligible based on patient's age to complete this topic IPV Vaccines Aged Out No longer eligi ble based on patient's age to complete this topic MMR Vaccines Aged Out No longer eligi ble based on patient's age to complete this topic Meningococcal ACWY Vaccine Aged Out N o longer eligible based on patient's age to complete this topic Meningococcal B Vaccine Aged Out No l onger eligible based on patient's age to complete this topic RSV Immunization Patients Un cherelle 20 months Aged Out No longer eligible b ased on patient's age to complete this topic Varicella Vaccines Aged Out No longer eligible based on patient's age to complete this topic
== END 2025-03-25 11:41 | disposition home or self-care (01) ==
LOC: HO.HMCH 10:50
PROVIDERS: PCP Physician Assistant; Visit Provider Physician Assistant
DX: I10 Essential (primary) hypertension (principal); F44.81 Dissociative identity disorder; F33.1 Major depressive disorder, recurrent, moderate; M79.7 Fibromyalgia; R07.9 Chest pain, unspecified

== ENCOUNTER → 2025-03-25 10:49 | Outpatient (BNVA) | payer OTHER, SELFPAY | PROVIDERS: PCP Physician Assistant; Visit Provider Physician Assistant | DX: I10 Essential (primary) hypertension (principal); K21.9 Gastro-esophageal reflux disease without esophagitis; G89.29 Other chronic pain; M79.7 Fibromyalgia; F44.81 Dissociative identity disorder; R07.9 Chest pain, unspecified; F33.1 Major depressive disorder, recurrent, moderate; J44.9 Chronic obstructive pulmonary disease, unspecified; J45.20 Mild intermittent asthma, uncomplicated; D50.9 Iron deficiency anemia, unspecified; M54.50 Low back pain, unspecified; M54.6 Pain in thoracic spine | CPT/HCPCS: 96127; 99212 ==

== ENCOUNTER 2025-07-10 11:11 | Outpatient (AMB) | payer OTHER, SELFPAY ==
--- NOTE | 2025-07-10 11:12 | MHC.PC.OV ---
Intake Visit Reasons: discuss Trazodone 50 mg Pantograph Machine Set Up Operator Required: No Classics Professor: Not Required per policy Accompanied by: Self / Same As Patient Allergies penicillin V Allergy (Unknown, Verified 07/10/25 11:20) hives Medication List - Last Reconciled 07/10/25 by Nhan Golden PA-C acetaminophen (Tylenol) 650 mg (2 x 325 mg) PO Q6H PRN acetaminophen-codeine 300-30 mg 1 tab PO Q8H PRN 4 days albuterol sulfate 2.5 mg (3 mL) inhalation QID PRN albuterol sulfate 90 mcg/actuation (Ventolin HFA) 1 puff inhalation QID 30 days amlodipine 10 mg PO DAILY 90 days budesonide-formoterol 80-4.5 mcg/actuation (Symbicort) 1 inh inhalation BID 30 days clonidine HCl 0.1 mg PO TID 30 days duloxetine 30 mg PO DAILY 90 days estradiol 0.01%(0.1mg/gram) pea-sized to urethra 3 times a week; 30 days famotidine 20 mg PO DAILY 90 days ferrous sulfate 325 mg PO DAILY 90 days fluticasone propionate 50 mcg/actuation 1 spray intranasal DAILY gabapentin 600 mg PO BID 90 days hydrochlorothiazide 12.5 mg PO QAM hydroxyzine HCl 25 mg PO Q8H PRN ibuprofen 600 mg PO Q6H PRN loratadine 10 mg PO DAILY 90 days [NEBULIZER and all related supplies As directed] omeprazole 40 mg PO DAILY sucralfate (Carafate) 1 g PO BID 30 days trimethoprim 100 mg PO DAILY 90 days walker (Ultra-Light Rollator misc) As directed Tobacco use date assessed: 07/10/25 Fall risk assessment: No Falls in past year Last assessed Fall Risk: 07/10/25 Dental Screening Dental Screen Date: 03/25/25 HPI discuss Trazodone 50 mg HPI Details Patient is a 65-year-old female being evaluated today via telephone. Patient reports she has been having a lot of trouble sleeping over the last few weeks. She had left over 50 mg trazodone from her previous PCP and has started this medication which has been effective for her for her sleep. She would like a new script to trazodone 2 mg. [facility] Medical History HTN (hypertension) GERD (gastroesophageal reflux disease) Nicotine dependence, cigarettes, uncomplicated Foot callus Polyarthralgia Pain of left heel Surgical History History of foot surgery History of total abdominal hysterectomy Family History Father No problems noted. Mother No problems noted. Family/Other Diabetes Hypertension Son No problems noted. Social History Housing: Apartment Alcohol intake: never Patient Tobacco Use Status: Current everyday Tobacco user Tobacco use type: Cigarette Cigarette Packs Per Day: 0.5 Cigarettes Per Day: 5 e-Cigarette/Vaping Use: Currently Using Frequency of e-Cigarette/Vaping Use: daily Second Hand Smoke Exposure: Yes service: No Current occupational status: disabled Cognitive needs: Yes (Cane) Hearing needs: Yes (hearing) Vision needs: Yes (Glasses) Questionnaire Thrive Questionnaire Date Thrive assessed: 03/25/25 MARU-7 AMB Questionnaire MARU-7 Date MARU - 7 assessed: 03/25/25 Source: Developed by Drs. Carlos Paris, Kelly Steele, Jerry Edward and colleagues, with an educational danitza from [employer]. Review of Systems Const Denies headache(s) Eyes Denies loss of vision ENT Denies vertigo, Denies dizziness, Denies headache(s) and Denies sore throat Card Denies chest pain, Denies leg edema and Denies lightheadedness Resp Denies cough, Denies hemoptysis and Denies wheezing GI Denies abdominal pain, Denies melena, Denies constipation, Denies diarrhea and Denies vomiting Denies urinary frequency, Denies dysuria and Denies urinary urgency Musc Denies arthralgias, Denies joint swelling, Denies numbness and Denies tingling Neuro Denies behavioral changes, Denies vertigo, Denies dizziness, Denies headache(s), Denies loss of vision, Denies memory loss, Denies numbness and Denies tingling Psych Reports abnormal sleep pattern, Denies anxiety, Denies behavioral changes, Denies depression, Denies memory loss and Denies panic attacks Leonardo/Lymph Denies easy bleeding and Denies easy bruising Aller/Immun Denies wheezing Physical exam (Primary Care) Tobacco/Smoking Status: Tobacco use Status Tobacco use date assessed 07/10/25 07/10/25 11:15 Patient Tobacco Use Status Current everyday Tobacco 07/10/25 11:15 Tobacco use type Cigarette 07/10/25 11:15 e-Cigarette/Vaping Use Currently Using 07/10/25 11:15 Thrive Assessment: Date of Thrive Assessment Date Thrive assessed 03/25/25 07/10/25 11:15 Telehealth Telehealth Telehealth Platform: Telephone Location of provider rendering services: practice address Location of patient: address on file Patient Identification confirmed using: Name, : Yes Telehealth method: voice only Patient verbally consented to treatment: Yes Patient verbally consented to billing insurance company: Yes Patient informed of any privacy concerns related to visit: Yes Minutes spent on Phone/Video with Pt.: 11 Coding Level of Care Code Tele Est Pt Level 3 (26146) Diagnoses Primary insomnia F51.01 Insomnia type: primary Assessment & Plan Assessment & Plan (1) Insomnia: Code(s): G47.00 - Insomnia, unspecified Category: Medical Qualifiers: Insomnia type: primary Qualified Code(s): F51.01 - Primary insomnia Plan: Patient reports she has been having a hard time sleeping, had left over trazodone from previous PCP 50 mg which has been effective for her. She would like a new script of trazodone 50 mg Medications: New trazodone 50 mg PO BEDTIME 90 tabs 1RF 90 days G47.00 - Insomnia, unspecified
--- OUTSIDE RECORDS SUMMARY | 2025-07-10 11:13 | XMS_ITS | Clinical Summary ---
Author Organization [facility] [[email or web address]] Address [address] [place] [address] Care Team Providers Care Carcass Trimmer Name Role Phone Unavailable Primary Care Provider [...] Depression Screening 07/18/2024 COVID-19 Vaccine (1 - 2024-2 6 season) 2025 Influenza Vaccine (#1) 2025 RSV [...]
== END 2025-07-10 11:24 | disposition home or self-care (01) ==
LOC: HO.HMCH 11:11
PROVIDERS: PCP Physician Assistant; Visit Provider Physician Assistant
DX: F51.01 Primary insomnia (principal)